=== PATIENT | female | born 1950 | race Caucasian/White ===

== ENCOUNTER → 2021-10-18 | Day surgery (SDC) | payer OTHER ==
--- NOTE | 2021-10-18 13:17 | RAD REPORT ---
EXAM DESCRIPTION: US - Guided FNA Non Breast - 10/18/2021 10:40 am CLINICAL HISTORY: Thyroid nodule ICD E04.1 COMPARISON: August 2021 ultrasound TECHNIQUE: Risks, benefits and alternatives of procedure explained to the patient and informed conse nt obtained. Skin and subcutaneous tissues anesthetized with lidocaine. Under sonographic guidance, five 25 gauge needle passes were obtained into the dominant nodule within the right lobe of the thyroid gland. Specimens given to pathology. Patient experienced no immediate complication IMPRESSION: Fine-needle aspiration of a dominant nodule within the right lobe of thyroid gland
== END ==
LOC: FNA 10:07
PROVIDERS: ATTEND Otolaryngology Pediatric Otolaryngology
PROC: 0GJK3ZZ Inspection of Thyroid Gland, Percutaneous Approach (ICD-10-PCS; principal; 2021-10-18)
DX: E04.1 Nontoxic single thyroid nodule (principal)
CPT/HCPCS: 88162

== ENCOUNTER → 2022-07-29 | Day surgery (SDC) | payer OTHER ==
--- NOTE | 2022-07-29 11:46 | RAD REPORT ---
EXAM DESCRIPTION: US - AXILLA ONLY - 07/29/2022 10:54 am CLINICAL HISTORY: Abnormal axillary lymph node for [id number] COMPARISON: Ultrasound 06/22/2022, mammogram 12/02/2021 FINDINGS: Patient presents for possible fine-needle aspiration/biopsy of what appeared to be an abno rmal lymph node in the right axilla. Prior imaging studies were reviewed. Prior imaging showed what a ppeared to be a 2.8 centimeter lymph node with hypoechoic fatty hilum. On review of the right axillary tail, the area of concern was again identified. Overall, the tissue i n question appears to be mostly isoechoic to the surrounding axillary tissues. Thin rim of hypoechoic tissue suspected to be the lymph node cortex is 1 mm or less in thickness. No abnormal nodularity. W hat is thought to be lymph node hilum shows mixed hyper and hypoechoic tissue. On review the mammogra m bilateral benign axillary tail lymph nodes are seen. Sonographic evaluation of the contralateral le ft axilla was also performed at this setting. Matching tissue was seen in the left axillary tail darya on. After review of all imaging, the area in question may not be a true lymph node or is a lymph node jerel t is felt to be benign and has a matching area of tissue in the contralateral axillary tail. Therefore, no fine-needle aspiration or biopsy was performed. Findings were discussed with the patien t in detail. Recommendation for the patient would be to undergo a right axillary and axillary tail ul trasound in 6 months to monitor for stability. Patient can return earlier if she palpates a mass or h as progressive symptoms. IMPRESSION: Sonographic evaluation of the right axillary tail did not identify a clearly defined carrol picious mass. The area of concern detailed on the June 2022 ultrasound has a matching finding in the contralateral left axilla. No biopsy was performed. Recommendation for the patient would be to undergo right axilla/ axillary ta il sonography in 6 months.
== END ==
LOC: DS 09:43
PROVIDERS: ATTEND Nurse Practitioner Women's Health
DX: N63.31 Unspecified lump in axillary tail of the right breast (principal); Z53.8 Procedure and treatment not carried out for other reasons
CPT/HCPCS: 76882